=== PATIENT | female | born 1930 | race Caucasian/White ===

== ENCOUNTER → 2016-07-01 | Outpatient (CLI) | payer MEDICARE, OTHER ==
[~2016-07-01] MED LIST: ALDACTONE 25MG25 M1 PO; AMITRIPTYLINE H10 M1 PO; AMITRIPTYLINE H25 M1 PO; AMITRIPTYLINE10 MG PO; ASPIRIN 32325 MG/TAB PO; ASPIRIN E.C. 8181 MG PO; CARVEDILOL3.125 MG PO; COLCRYS0.6 MG PO; COUMADIN2 MG PO; DEMADEX 20MG20 M1 PO; DETROL LA 4MG4 MG PO; DETROL LA4 PO; DIABETA 5MG5 MG/TAB PO; DIGITEK0.125 MG PO; DILTIAZEM180 M1 PO; DITROPAN 5MG TAB5 MG PO; DITROPAN XL 5MG5 M1 PO; Detrol; ELIQUIS 5MG PO; FLAGYL500 MG PO; FLOMAX 0.40.4 MG/CAP PO; GLUCOPHAGE500 MG/TAB PO; K-DUR 10 MEQ T10 MEQ PO; L-THYROXINE SO0.1 MG PO; LANOXIN 0.120.125 MG PO; LANOXIN 0.25M0.25 MG PO; LASIX 40MG TABL40 MG PO; LASIX20 MG PO; LASIX40 MG PO; LEVOTHYROXINE PO; LEVOXINE PO; LEVOXYL0.1 MG PO; LISINOPRIL5 MG PO; LOPID600 MG PO; LOPRESSOR 225 MG/TAB PO; MAXIDE; MAXIDE PO; MEDI-FIRST ASP325 MG PO; METOPROLOL TART25 MG PO; Maxide; NORCO 325 MG-51 TAB PO; OMEPRAZOLE20 MG PO; POTASSIUM CH2 MEQ/ML; POTASSIUM CHLO10 ME2 PO; POTASSIUM CHLO25 ME1 PO; POTASSIUM CL 110 MEQ PO; PRADAXA PO; PRADAXA75 MG PO; PREDNISONE10 MG PO; PREDNISONE20 MG PO; PREVALITE4 GM/5.5 G PO; PRILOTC PO; PRINIVIL5 MG PO; Prandin; SIMVISTATIN; STOOL SOFTENER100 MG PO; SYNTHROID0.1 MG PO; TRIAMTERENE W/H1 TA1 PO; TRIAMTERENE/HCT1 TA2 PO; TRIAMTERENE/HCT1 TAB PO; VOLTAREN 75 DR75 MG PO; ZOCOR 40MG40 MG PO; ZOCOR40 MG PO; [UNRECOGNIZED DRUG - OTHER]; [UNRECOGNIZED DRUG - OTHER]
== END ==
LOC: COL.RAD 09:07
PROVIDERS: Internal Medicine Interventional Cardiology
DX: Z01.812 Encounter for preprocedural laboratory examination (principal); I65.22 Occlusion and stenosis of left carotid artery

== ENCOUNTER 2016-07-30 08:06 | Outpatient (CLI) | payer MEDICARE, OTHER ==
[2007-01-26 15:09] VITALS: BP 100/54
[~2016-07-30] VITALS: Ht 170.2 cm; Wt 95.5 kg
[~2016-07-30 08:06] MED LIST changes: -PREDNISONE20 MG PO
[2016-07-30] MEDS ORDERED: PREDNISONE20 MG PO (09:21)
[2016-07-30 09:25] VITALS: BP 110/56; PULSE 54; TEMP 98.1
[2016-07-30 11:57] LABS: CREATININE, serum 1.74 mg/dL (0.52-1.25)
== END 2016-07-30 14:45 | disposition home or self-care (01) ==
LOC: EUO 08:06 → COL.RAD 13:30 → EUO 14:45
PROVIDERS: Internal Medicine Interventional Cardiology
DX: I65.22 Occlusion and stenosis of left carotid artery (principal)
CPT/HCPCS: J7030; J7512

== ENCOUNTER 2017-04-19 16:24 | Inpatient (IN) | payer MEDICARE, OTHER ==
[~2017-04-19] VITALS: Ht 160 cm; Wt 89.1 kg
[~2017-04-19 16:24] MED LIST changes: +ELIQUIS 2.5 PO; -ELIQUIS 5MG PO; +PREDNISONE20 MG PO
[2017-04-19 17:01] LABS: BASO # 0.1 (0.0-0.2); BASO % 0.5 % (0.0-2.0); EOS # 0.2 (0.0-0.7); EOS % 1.3 % (0-4.0); GRAN # 7.8 (1.4-6.5); GRAN % 62.7 % (42.2-75.2); HEMATOCRIT 41.4 % (37.0-47.0); HEMOGLOBIN 13.4 g/dl (12.5-16.0); LYMPH # 2.6 (1.2-3.4); LYMPH % 20.7 % (20.0-51.0); MEAN CELL VOLUME 88 fl (80.0-100.0); MEAN CORPUSCULAR HEMOGLOBIN 28 pg (27.0-31.0); MEAN CORPUSCULAR HGB CONC 32 g/dl (33.0-37.0); MEAN PLATELET VOLUME 9.9 fl (7.4-10.4); MONO # 1.8 (0.1-0.6); MONO % 14.4 % (1.7-9.3); PLATELET COUNT 307 K/mm3 (130-400); RED BLOOD COUNT 4.73 M/mm3 (4.10-5.30); WHITE BLOOD COUNT 12.5 K/mm3 (4.8-10.8)
[2017-04-19 17:09] LABS: COLLECTION METHOD CATHETER
[2017-04-19 17:15] LABS: MUCOUS Present /lpf; PH 5 (5-8); SQUAMOUS EPITHELIAL 0-2 /hpf; URINE APPEARANCE Hazy; URINE BACTERIA Many /hpf; URINE BILIRUBIN Negative (NEGATIVE); URINE BLOOD 1+ (NEGATIVE); URINE COLOR Yellow; URINE GLUCOSE Negative (NEGATIVE); URINE KETONE Negative (NEGATIVE); URINE LEUKOCYTE ESTERASE Trace (NEGATIVE); URINE PROTEIN(semi-quant) Negative (NEGATIVE); URINE RBC 0-2 /hpf; URINE UROBILINOGEN >=4.0 mg/dL (NEGATIVE)
[2017-04-19 17:16] LABS: URINE WBC 20-50 /hpf
[2017-04-19 17:19] LABS: ADJUSTED CALCIUM 9.1 mg/dL (8.4-10.2); ALBUMIN 3.5 gm/dL (3.5-5.0); BILIRUBIN,TOTAL 0.6 mg/dL (0.0-1.0); CALCIUM 8.7 mg/dL (8.4-10.2); CREATININE, serum 1.36 mg/dL (0.52-1.25); POTASSIUM 4.3 mmol/L (3.4-5.0); TOTAL PROTEIN 6.9 gm/dL (6.4-8.2)
[2017-04-19 17:25] LABS: DIGOXIN 0.6 ng/mL (0.8-2.0)
[2017-04-19 17:31] LABS: TROPONIN-I 0.018 ng/mL (0.000-0.034)
[2017-04-19 17:47] LABS: C-REACTIVE PROTEIN 21.7 mg/dL (0.0-0.9)
[2017-04-19 20:47] VITALS: BP 127/74; PULSE 52; TEMP 98.5
[2017-04-19 20:54] VITALS: BP 127/74; PULSE 52; TEMP 98.5
[2017-04-19 21:52] LABS: TSH w REFLEX 14.2 uIU/mL (0.465-4.680)
[2017-04-20 03:44] VITALS: BP 120/69; PULSE 57; TEMP 97.3
[2017-04-20 06:37] LABS: BASO # 0.1 (0.0-0.2); BASO % 0.6 % (0.0-2.0); EOS # 0.2 (0.0-0.7); EOS % 2.4 % (0-4.0); GRAN # 5.6 (1.4-6.5); GRAN % 59.8 % (42.2-75.2); LYMPH # 2.3 (1.2-3.4); LYMPH % 24.1 % (20.0-51.0); MEAN CELL VOLUME 88 fl (80.0-100.0); MEAN CORPUSCULAR HGB CONC 32 g/dl (33.0-37.0); MONO # 1.2 (0.1-0.6); MONO % 12.7 % (1.7-9.3); PLATELET COUNT 274 K/mm3 (130-400); WHITE BLOOD COUNT 9.5 K/mm3 (4.8-10.8)
[2017-04-20 06:51] LABS: CALCIUM 7.9 mg/dL (8.4-10.2); CREATININE, serum 1.26 mg/dL (0.52-1.25); POTASSIUM 4.1 mmol/L (3.4-5.0)
[2017-04-20 06:58] LABS: HEMATOCRIT 35.9 % (37.0-47.0); HEMOGLOBIN 11.4 g/dl (12.5-16.0); MEAN CORPUSCULAR HEMOGLOBIN 28 pg (27.0-31.0)
[2017-04-20 08:33] VITALS: BP 106/79; PULSE 58; TEMP 97.9
[2017-04-20 12:13] VITALS: BP 119/36; PULSE 49; TEMP 97.3
[2017-04-20 16:14] VITALS: BP 116/46; PULSE 55; TEMP 97.7
[2017-04-20 20:06] VITALS: BP 120/52; PULSE 57; TEMP 97.5
[2017-04-20 23:33] VITALS: BP 125/56; PULSE 55; TEMP 97.7
[2017-04-21 03:44] VITALS: BP 154/77; PULSE 55
[2017-04-21 07:27] LABS: BASO # 0.1 (0.0-0.2); BASO % 0.6 % (0.0-2.0); EOS # 0.2 (0.0-0.7); EOS % 2.4 % (0-4.0); GRAN # 5.6 (1.4-6.5); GRAN % 67.9 % (42.2-75.2); HEMATOCRIT 38.1 % (37.0-47.0); HEMOGLOBIN 12.1 g/dl (12.5-16.0); LYMPH # 1.4 (1.2-3.4); LYMPH % 17.3 % (20.0-51.0); MEAN CELL VOLUME 88 fl (80.0-100.0); MEAN CORPUSCULAR HEMOGLOBIN 28 pg (27.0-31.0); MEAN CORPUSCULAR HGB CONC 32 g/dl (33.0-37.0); MONO # 0.9 (0.1-0.6); MONO % 11.4 % (1.7-9.3); PLATELET COUNT 294 K/mm3 (130-400); RED BLOOD COUNT 4.31 M/mm3 (4.10-5.30); WHITE BLOOD COUNT 8.2 K/mm3 (4.8-10.8)
[2017-04-21 07:35] VITALS: BP 134/58; PULSE 55; TEMP 97.5
[2017-04-21 07:46] LABS: CALCIUM 8.7 mg/dL (8.4-10.2); CREATININE, serum 1.35 mg/dL (0.52-1.25); POTASSIUM 3.8 mmol/L (3.4-5.0)
[2017-04-21] MEDS ORDERED: CEPHALEXIN500 M1 PO (11:27)
[2017-04-21] MEDS ORDERED: TYLENOL 325MG325 MG PO (11:28)
[2017-04-21 11:53] VITALS: BP 127/43; PULSE 53; TEMP 98.2
[2017-04-21 16:39] VITALS: BP 118/79; PULSE 56; TEMP 97.3
[2017-04-21 19:58] VITALS: BP 139/62; PULSE 60; TEMP 97.8
[2017-04-21 23:24] VITALS: BP 149/53; PULSE 57; TEMP 97.8
[2017-04-22 02:52] VITALS: BP 145/67; PULSE 63; TEMP 98.2
[2017-04-22 08:04] VITALS: BP 147/51; PULSE 57; TEMP 97.6
[2017-04-22 09:52] VITALS: BP 147/51; PULSE 57; TEMP 97.6
== END 2017-04-22 11:20 | DRG 872 ==
LOC: COL.ER 16:24 → MEDICAL 18:43
PROVIDERS: Emergency Medicine; Nurse Practitioner; Physician Assistant
DX: A41.89 Other specified sepsis (principal); N39.0 Urinary tract infection, site not specified; R65.20 Severe sepsis without septic shock; E86.0 Dehydration; I12.9 Hypertensive chronic kidney disease with stage 1 through stage 4 chronic kidney disease, or unspecified chronic kidney disease; E11.22 Type 2 diabetes mellitus with diabetic chronic kidney disease; N18.9 Chronic kidney disease, unspecified; I48.91 Unspecified atrial fibrillation; Z79.01 Long term (current) use of anticoagulants; Z95.0 Presence of cardiac pacemaker; Z87.891 Personal history of nicotine dependence; B96.1 Klebsiella pneumoniae [K. pneumoniae] as the cause of diseases classified elsewhere; Z23 Encounter for immunization; I34.0 Nonrheumatic mitral (valve) insufficiency
CPT/HCPCS: 99222-AI; 99223-AI; 99232-AI; 99239; J0696; J1940; J7030

== ENCOUNTER → 2018-09-16 | Outpatient (CLI) | payer MEDICARE, OTHER ==
[2007-01-26 15:09] VITALS: BP 100/54
[~2018-09-16] VITALS: Ht 160 cm; Wt 92.6 kg
[~2018-09-16] MED LIST changes: +CEPHALEXIN500 M1 PO; +HIPREX PO; +TYLENOL 325MG325 MG PO
[2018-09-16 12:37] VITALS: BP 147/79; PULSE 85
[2018-09-16 13:50] VITALS: BP 141/85; PULSE 69
--- NOTE | 2018-09-16 14:05 | NUR ---
Pt out to car per wheelchair, denies pain at this time. Discharge instructions gone over with family and copy of instructions given to pt. Pt up and into car with minimal assistance.
== END ==
LOC: COL.RAD 09-14 12:30
DX: M51.36 Other intervertebral disc degeneration, lumbar region (principal)
CPT/HCPCS: J3301